=== PATIENT | female | born 1990 | race Caucasian/White ===

== ENCOUNTER → 2016-11-28 | Outpatient (CLI) | payer BC | LOC: LAB 18:30 | DX: R50.81 Fever presenting with conditions classified elsewhere (principal); R05 Cough ==

== ENCOUNTER → 2016-12-30 | Outpatient (CLI) | payer BC | LOC: LAB 11:14 | DX: Z00.00 Encounter for general adult medical examination without abnormal findings (principal); Z76.89 Persons encountering health services in other specified circumstances ==